=== PATIENT | female | born 1985 | race Caucasian/White ===

== ENCOUNTER → 2018-08-16 | Outpatient (CLI) | payer BC | LOC: M WUC 19:15 | DX: S67.21XA Crushing injury of right hand, initial encounter (principal); X58.XXXA Exposure to other specified factors, initial encounter; Y92.9 Unspecified place or not applicable | CPT/HCPCS: 73130 ==

== ENCOUNTER → 2019-03-26 | Outpatient (REF) | payer OTHER | LOC: M LAB REF 17:18 | PROVIDERS: ATTEND Physician Assistant | DX: R30.0 Dysuria (principal) ==

== ENCOUNTER → 2019-07-16 | Outpatient (CLI) | payer OTHER ==
[2019-07-16 13:51] LABS: BASO # 0.1 10^3/uL (0.0-0.2); BASO % 0.9 % (0.0-1.0); EOS # 0.1 10^3/uL (0.0-0.5); EOS % 0.9 % (0.0-3.0); LYMPH # 1.4 10^3/uL (1.5-5.0); LYMPH % 23.8 % (24.0-44.0); MEAN CORPUSCULAR HEMOGLOBIN 25.4 pg (27.0-33.0); MEAN CORPUSCULAR HGB CONC 31.7 g/dl (32.0-36.5); MEAN CORPUSCULAR VOLUME 80.2 fl (80.0-96.0); MONO # 0.4 10^3/uL (0.0-0.8); MONO % 6.1 % (0.0-5.0); NEUTROPHILS # 3.9 10^3/uL (1.5-8.5); NEUTROPHILS % 68.1 % (36.0-66.0); PLATELET COUNT, AUTOMATED 249 10^3/uL (150-450); RED BLOOD COUNT 5.11 10^6/uL (4.00-5.40); WHITE BLOOD COUNT 5.7 10^3/uL (4.0-10.0)
[2019-07-16 14:05] LABS: ALT/SGPT 24 U/L (12-78); BILIRUBIN,TOTAL 0.4 MG/DL (0.2-1.0); BLOOD UREA NITROGEN 16 MG/DL (7-18); CARBON DIOXIDE LEVEL 28 MEQ/L (21-32); CHLORIDE LEVEL 106 MEQ/L (98-107); CREATININE FOR GFR 0.85 MG/DL (0.55-1.30); FREE T4 0.92 NG/DL (0.76-1.46); GLOMERULAR FILTRATION RATE > 60.0 (>60); GLUCOSE, FASTING 71 MG/DL (70-100); POTASSIUM SERUM 4.3 MEQ/L (3.5-5.1); SODIUM LEVEL 140 MEQ/L (136-145); TOTAL PROTEIN 6.9 GM/DL (6.4-8.2)
--- NOTE | 2019-07-16 15:27 | REP ---
Clinical: Left foot pain Technique: AP, lateral, bilateral oblique views left foot . Findings: The osseous structures and joint spaces are intact and normal. There is no evidence for acute fracture or dislocation. Surrounding soft tissues are unremarkable. No subcutaneous emphysema or radiodense foreign body. Impression: Age-appropriate left foot series. No acute fracture or dislocation. Electronically Signed by Wesley Adkins MD 07/16/2019 09:28 A
[2019-07-18 00:06] LABS: Lyme Disease IgG/IgM Antibodie <0.91 ISR (0.00-0.90); Lyme Disease IgM Ab Quantitati <0.80 index (0.00-0.79)
== END ==
LOC: M WUC 09:07
PROVIDERS: ATTEND Physician Assistant
DX: M79.672 Pain in left foot (principal); M79.10 Myalgia, unspecified site

== ENCOUNTER → 2019-09-23 | Outpatient (CLI) | payer OTHER ==
[~2019-09-23] MED LIST: METHACHOLINE KIT (J7674) INH ONE
--- NOTE | 2019-09-23 08:34 | PFTRPT ---
Site: [facility], [address] [place] [address], [id number] ID: [id number] Name: AMBER BLOUNT Visit Date: 09/23/2019 Second ID: [id number] Referring Doctor: Fab Otto D.O. Reviewing Doctor: Sadiq Salter MD Desulfurizer Hand: Keshawn REBOLLEDO RRT Age: 34 : 1985 Sex: Female Race: Height: 66.00 Inches Weight: 160.00 Lbs BSA: 1.82 Order IDs: [id number] Requested Test(s): <RESP-PFT.DLCO> Diagnosis: SOB test meet the ATS standards for acceptability and repeatability. Pt was given four puffs of albuterol for postbronchodilator. Review Status: Not Reviewed Pre-Bronch Post-Bronch Pred Actual %Pred Actual %Chng SPIROMETRY FVC (L) 3.98 3.06 76 3.43 12 FEV1 (L) 3.28 2.92 88 3.16 8 FEV1/FVC (%) 83 95 114 92 -3 FEF 25% (L/sec) 5.76 5.37 93 6.18 15 FEF 50% (L/sec) 4.32 5.14 118 5.60 8 FEF 75% (L/sec) 1.76 3.30 187 4.10 24 FEF 25-75% (L/sec) 3.37 4.66 138 5.27 13 FEF Max (L/sec) 7.32 5.41 73 6.24 15 FIVC (L) 2.91 3.29 13 FIF 50% (L/sec) 4.00 3.73 93 3.65 -2 FIF Max (L/sec) 4.04 3.85 -4 MVV (L/min) 109 105 96 Expiratory Time (sec) 6.38 6.88 7 Back Extrap Vol (L) 0.09 0.11 18 Time To FEFmax (sec) 0.111 0.115 3 LUNG VOLUMES SVC (L) 3.74 3.43 91 IC (L) 2.38 2.58 108 ERV (L) 1.36 0.85 62 TGV (L) 2.97 2.66 89 RV (Pleth) (L) 1.61 1.81 112 TLC (Pleth) (L) 5.35 5.24 97 RV/TLC (Pleth) (%) 29 35 119 DIFFUSION DLCOunc (ml/min/mmHg) 25.07 22.02 87 DL/VA (ml/min/mmHg/L) 4.69 4.77 101 VA (L) 5.35 4.61 86 BHT (sec) 9.77 IVC (L) 3.34 TLC (SB) (L) 4.76 AIRWAYS RESISTANCE Raw (cmH2O/L/s) 1.86 1.09 58 Gaw (L/s/cmH2O) 1.03 0.92 89 sRaw (cmH2O*s) 4.76 2.90 60 sGaw (1/cmH2O*s) 0.20 0.35 173
== END ==
LOC: M CARPUL 07:35
PROVIDERS: ATTEND Emergency Medicine
DX: R06.02 Shortness of breath (principal)
CPT/HCPCS: 88738; 94060; 94726; 94729; J7674

== ENCOUNTER → 2019-10-04 | Outpatient (CLI) | payer OTHER ==
--- NOTE | 2019-10-04 09:23 | PFTRPT ---
Height: 66.00 Inches Weight: 160.00 Lbs BSA: 1.82 Diagnosis: SOB DATE OF PROCEDURE: 10/04/2019 ORDERED BY: Dr. Fab Otto INTERPRETATION: Study of excellent technical quality. Under protocol, methacholine was administered. At a dose of 0.25 mg or 1.375 CDUs, a 23% decline in the FEV1 was noted. PC of 0.13 is significant. Flow rates did return to baseline post bronchodilator administration. IMPRESSION: Positive methacholine challenge study. MTDD
== END ==
LOC: M CARPUL 08:41
PROVIDERS: ATTEND Emergency Medicine
DX: R06.02 Shortness of breath (principal)
CPT/HCPCS: 94070; J7674

== ENCOUNTER → 2020-10-19 | Outpatient (CLI) | payer SELFPAY | LOC: M LABSMTC 12:31 | PROVIDERS: ATTEND Pediatrics | DX: Z20.828 Contact with and (suspected) exposure to other viral communicable diseases (principal) ==